=== PATIENT | female | born 1980 | race Two or more races ===

== ENCOUNTER 2021-02-27 09:23 | Emergency (ER) | payer MEDICAID, OTHER ==
[~2021-02-27] VITALS: Ht 154.9 cm; Wt 78.5 kg
[2021-02-27 10:08] LABS: Basophils # (auto) 0.1 10 ^3/uL (0-0.2); Basophils % (auto) 0.8 % (0.0-2.0); Eosinophils # (auto) 0.2 10 ^3/uL (0-0.8); Eosinophils % (auto) 2.8 % (0.0-7.0); Hemoglobin 13.5 g/dL (12.2-16.2); Lymphocytes # (auto) 1.9 10 ^3/uL (0.4-5.4); Lymphocytes % (auto) 29.2 % (10.0-50.0); Mean Corpuscular Hemoglobin 29.1 pg (28.0-32.0); Mean Corpuscular Volume 88.3 fL (80.0-100.0); Monocytes # (auto) 0.3 10 ^3/uL (0-1.3); Monocytes % (auto) 5.4 % (0.0-12.0); Neutrophils # (auto) 3.9 10 ^3/uL (1.6-8.6); Neutrophils % (auto) 61.8 % (37.0-80.0); Red Blood Cells 4.64 10^6/uL (4.0-5.20); Red Cell Distribution Width 13.7 % (11.8-14.3); White Blood Cell 6.4 10^3/uL (4.4-10.8)
[2021-02-27 10:57] VITALS: BP 142/105
[2021-02-27 11:16] LABS: Albumin 3.6 g/dL (3.4-5.0); BUN/Creatinine Ratio 12.3; Bilirubin, Total 0.4 mg/dL (0.2-1.0); Potassium 3.9 mmol/L (3.5-5.1); Total Protein 7.7 g/dL (6.4-8.2)
== END 2021-02-27 11:58 | disposition home or self-care (01) ==
LOC: ER 09:23
DX: O20.8 Other hemorrhage in early pregnancy (principal); Z3A.00 Weeks of gestation of pregnancy not specified
CPT/HCPCS: 36415; 80053; 84702; 85025

== ENCOUNTER 2022-09-15 09:44 | Observation (INO) | payer MEDICAID | END 2022-09-15 16:22 | disposition home or self-care (01) | LOC: LDRP 14:49 → UNDOADMOB 14:49 → LDRP 15:04 | PROVIDERS: ADMIT Obstetrics & Gynecology; ATTEND Obstetrics & Gynecology | DX: O24.419 Gestational diabetes mellitus in pregnancy, unspecified control (principal); Z3A.32 32 weeks gestation of pregnancy | CPT/HCPCS: 59025; 76818; 81002; 82948; 82962; 94760; G0378 ==

== ENCOUNTER 2022-09-22 07:35 | Observation (INO) | payer MEDICAID | END 2022-09-22 12:07 | disposition home or self-care (01) | LOC: LDRP 10:43 → UNDOADMOB 10:43 → LDRP 10:54 → UNDODISOB 12:07 | PROVIDERS: ADMIT Obstetrics & Gynecology; ATTEND Obstetrics & Gynecology | DX: O24.419 Gestational diabetes mellitus in pregnancy, unspecified control (principal); Z3A.33 33 weeks gestation of pregnancy | CPT/HCPCS: 59025; 76818; 81002; 82948; 82962; 94760; G0378 ==

== ENCOUNTER 2022-09-29 11:00 | Observation (INO) | payer MEDICAID | END 2022-09-29 12:40 | disposition home or self-care (01) | LOC: LDRP 11:00 → UNDOADMOB 11:00 → LDRP 11:06 | PROVIDERS: ADMIT Obstetrics & Gynecology; ATTEND Obstetrics & Gynecology | DX: O24.419 Gestational diabetes mellitus in pregnancy, unspecified control (principal); Z3A.34 34 weeks gestation of pregnancy | CPT/HCPCS: 59025; 76818; 81002; 82948; 82962; 94760; G0378 ==

== ENCOUNTER 2022-10-06 10:58 | Observation (INO) | payer MEDICAID | END 2022-10-06 12:38 | disposition home or self-care (01) | LOC: UNDOADMOB 10:58 → LDRP 10:58 → UNDODISOB 12:38 | PROVIDERS: ADMIT Obstetrics & Gynecology; ATTEND Obstetrics & Gynecology | DX: O24.419 Gestational diabetes mellitus in pregnancy, unspecified control (principal); Z3A.35 35 weeks gestation of pregnancy | CPT/HCPCS: 59025; 76818; 81002; 82962; 94760; G0378 ==

== ENCOUNTER 2022-10-12 12:20 | Observation (INO) | payer MEDICAID | END 2022-10-12 14:16 | disposition home or self-care (01) | LOC: LDRP 12:20 → UNDOADMOB 12:20 → LDRP 12:46 | PROVIDERS: ADMIT Obstetrics & Gynecology; ATTEND Obstetrics & Gynecology | DX: O24.419 Gestational diabetes mellitus in pregnancy, unspecified control (principal); Z3A.36 36 weeks gestation of pregnancy | CPT/HCPCS: 59025; 76818; 81002; 82962; 94760; G0378 ==

== ENCOUNTER 2022-10-19 11:35 | Observation (INO) | payer MEDICAID ==
[2022-10-19] MEDS ORDERED: PREN-96 PO (13:34)
== END 2022-10-19 13:46 | disposition home or self-care (01) ==
LOC: LDRP 11:35 → UNDOADMOB 11:35 → LDRP 11:45 → UNDODISOB 13:46
PROVIDERS: ADMIT Obstetrics & Gynecology; ATTEND Obstetrics & Gynecology
DX: O24.419 Gestational diabetes mellitus in pregnancy, unspecified control (principal); Z3A.37 37 weeks gestation of pregnancy
CPT/HCPCS: 59025; 76818; 81002; 82948; 82962; G0378

== ENCOUNTER 2022-10-29 04:00 | Inpatient (IN) | payer MEDICAID ==
[2022-10-27 10:33] LABS: Basophils # (auto) 0 10 ^3/uL (0-0.2); Basophils % (auto) 0.6 % (0.0-2.0); Eosinophils # (auto) 0 10 ^3/uL (0-0.8); Eosinophils % (auto) 0.5 % (0.0-7.0); Hemoglobin 12.1 g/dL (12.2-16.2); Lymphocytes % (auto) 18.7 % (10.0-50.0); Mean Corpuscular Hgb Conc. 33.7 g/dL (32.0-36.0); Mean Corpuscular Volume 89.1 fL (80.0-100.0); Monocytes # (auto) 0.3 10 ^3/uL (0-1.3); Monocytes % (auto) 5.1 % (0.0-12.0); Neutrophils % (auto) 75.1 % (37.0-80.0); Red Blood Cells 4.04 10^6/uL (4.0-5.20); Red Cell Distribution Width 15.5 % (11.8-14.3); White Blood Cell 5.3 10^3/uL (4.4-10.8)
[2022-10-27 10:52] LABS: Urine Bacteria FEW /hpf (None Seen); Urine Blood Negative /uL (Negative); Urine Specific Gravity 1.007 (1.001-1.035); Urine WBC <1 /hpf (0 - 5)
[2022-10-27 11:31] LABS: INR 0.92 (0.9-1.15); Partial Thromboplastin Time 29.1 sec (24.6-33.4)
[2022-10-27 11:45] LABS: Albumin 2.7 g/dL (3.4-5.0); Calcium 8.4 mg/dL (8.5-10.1); Potassium 3.4 mmol/L (3.5-5.1)
[2022-10-27 11:50] LABS: Alcohol, Urine < 3.0 mg/dL (0-10); Barbiturate Scree,Urine NEGATIVE (NEGATIVE)
[2022-10-27 11:54] LABS: BUN/Creatinine Ratio 8.6 (10.0-20.0); Bilirubin, Total 0.3 mg/dL (0.2-1.0); Total Protein 6.1 g/dL (6.4-8.2)
[2022-10-27 12:03] LABS: Amphetamine Screen, Urine NEGATIVE (NEGATIVE); Benzodiazephine Screen, Urine NEGATIVE (NEGATIVE); Cannabinoid Screen, Urine NEGATIVE (NEGATIVE); Cocaine Screen, Urine NEGATIVE (NEGATIVE); Opiate Scree,Urine NEGATIVE (NEGATIVE); Phencyclidine Screen, Urine NEGATIVE (NEGATIVE)
[2022-10-28 06:23] LABS: RPR Non Reactive (Non Reactive)
[~2022-10-29] VITALS: Ht 162.6 cm; Wt 89.4 kg
[2022-10-29] VITALS (15 sets, daily range): BP systolic 106–122; BP diastolic 58–76
[~2022-10-29 04:00] MED LIST: PREN-96 PO
[2022-10-29] MEDS ORDERED: LACTATED RINGER'S 1,000 ML IV ONE (04:30)
[2022-10-29] MEDS ORDERED: SODIUM CITR/CITRIC ACID ORAL SOLN 30 ML PO ONE (04:30)
[2022-10-29] MEDS ORDERED: ceFAZolin 1GM/50ML 50 ML IV ONE (04:30)
[2022-10-29] MEDS: LACTATED RINGER'S 1,000 ML IV SCH ×3 (05:07→20:30)
[2022-10-29] MEDS ORDERED: fentaNYL CITRATE 100 MCG/2 ML VL ONE (07:50)
[2022-10-29] MEDS ORDERED: EPINEPHrine HCL 1 MG/1 ML AMP ONE (07:51)
[2022-10-29] MEDS ORDERED: SODIUM CHLORIDE LOCK 10 ML ONE (07:51)
[2022-10-29] MEDS ORDERED: BUPIVACAINE/DEXTROSE MPF 0.75% 2 ML AMP IT ONE (07:51)
[2022-10-29] MEDS ORDERED: ONDANSETRON HCL 4 MG/2 ML VIAL ONE (07:51)
[2022-10-29] MEDS ORDERED: MIDAZOLAM HCL 2MG/2ML 2ml VIAL (1mg/ml) ONE (07:51)
[2022-10-29] MEDS ORDERED: ePHEDrine SULFATE 50 MG/ML AMP ONE (07:51)
[2022-10-29] MEDS ORDERED: SUGAMMADEX 200mg/2ml Vial (100MG/ML) IV ONE (07:53)
[2022-10-29] MEDS ORDERED: NALOXONE HCL 1MG/ML 2ML SYRINGE ONE (08:02)
[2022-10-29] MEDS ORDERED: TETRACAINE 1% INJ 2 ML VIAL IJ ONE (08:22)
[2022-10-29] MEDS ORDERED: oxyTOCIN 10 UNIT/ML 10ML VIAL ONE (08:28)
[2022-10-29] MEDS ORDERED: MORPHINE SULF PF 5 MG/10 ML VIAL ONE (08:28)
[2022-10-29] MEDS ORDERED: HYDR-4902 PO (08:48)
[2022-10-29] MEDS ORDERED: IBUP-1456 PO (08:48)
[2022-10-29] MEDS ORDERED: DOCU-94 PO (08:48)
[2022-10-29] MEDS ORDERED: MORPHINE SULFATE INJ 2 MG/ml SYRG IV PRN (10:00)
[2022-10-29] MEDS ORDERED: diphenhdrAMINE HCL 50 MG/1 ML VL IV PRN (10:00)
[2022-10-29] MEDS ORDERED: NALOXONE HCL 0.4 MG/ML VIAL IV PRN (10:00)
[2022-10-29] MEDS ORDERED: METOCLOPRAMIDE HCL 5MG/ml INJ 2ml VIAL IV PRN (10:00)
[2022-10-29] MEDS ORDERED: HYDROmorphone HCL 2 MG/ML VL/or syr IV PRN ×2 (10:00)
[2022-10-29] MEDS ORDERED: LACT. RINGERS/OXYTOCIN 20UNITS 1,000 ML IV ONE (10:15)
[2022-10-29] MEDS ORDERED: ONDANSETRON HCL 4 MG/2 ML VIAL IV PRN (10:15)
[2022-10-29] MEDS ORDERED: ceFAZolin 1GM/50ML 50 ML IV SCH (10:15)
[2022-10-29] MEDS ORDERED: GUM (CHEWING) 1 GUM CHEW CHEW ONE (10:15)
[2022-10-29] MEDS: TERBUTALINE SULFATE 1 MG/ML 1ML VIAL SC SCH ×2 (12:22→12:28)
[2022-10-29] MEDS: ACETAMINOPHEN IV 1000 MG/100ML (10MG/ML) IV PRN ×2 (14:27→22:30)
[2022-10-29] MEDS: ceFAZolin 1GM/50ML 50 ML IV SCH ×2 (15:30→23:35)
[2022-10-29 22:20] LABS: Basophils # (auto) 0 10 ^3/uL (0-0.2); Basophils % (auto) 0.4 % (0.0-2.0); Eosinophils # (auto) 0 10 ^3/uL (0-0.8); Eosinophils % (auto) 0.1 % (0.0-7.0); Hematocrit 38.3 % (36.0-46.0); Hemoglobin 12.8 g/dL (12.2-16.2); Lymphocytes % (auto) 8.7 % (10.0-50.0); Mean Corpuscular Hemoglobin 30.1 pg (28.0-32.0); Mean Corpuscular Hgb Conc. 33.4 g/dL (32.0-36.0); Mean Corpuscular Volume 90.1 fL (80.0-100.0); Monocytes # (auto) 0.8 10 ^3/uL (0-1.3); Monocytes % (auto) 6.5 % (0.0-12.0); Neutrophils # (auto) 9.7 10 ^3/uL (1.6-8.6); Neutrophils % (auto) 84.3 % (37.0-80.0); Nucleated Red Blood Cells % 0.1 %; Red Blood Cells 4.25 10^6/uL (4.0-5.20); Red Cell Distribution Width 14.9 % (11.8-14.3); White Blood Cell 11.5 10^3/uL (4.4-10.8)
[2022-10-30] VITALS (10 sets, daily range): BP systolic 99–127; BP diastolic 50–73
[2022-10-30] MEDS: LACTATED RINGER'S 1,000 ML IV SCH ×3 (04:30→20:30)
[2022-10-30] MEDS ORDERED: BISACODYL 10 MG RECT SUPP PR PRN (06:30)
[2022-10-30] MEDS ORDERED: HYDROcodone-ACET 5/325MG TAB PO PRN (06:30)
[2022-10-30 07:11] LABS: Basophils # (auto) 0 10 ^3/uL (0-0.2); Basophils % (auto) 0.5 % (0.0-2.0); Eosinophils # (auto) 0 10 ^3/uL (0-0.8); Eosinophils % (auto) 0.5 % (0.0-7.0); Hematocrit 32.4 % (36.0-46.0); Hemoglobin 11.3 g/dL (12.2-16.2); Lymphocytes # (auto) 1.5 10 ^3/uL (0.4-5.4); Lymphocytes % (auto) 17.6 % (10.0-50.0); Mean Corpuscular Hemoglobin 31.2 pg (28.0-32.0); Mean Corpuscular Hgb Conc. 34.7 g/dL (32.0-36.0); Monocytes # (auto) 0.7 10 ^3/uL (0-1.3); Monocytes % (auto) 7.8 % (0.0-12.0); Neutrophils # (auto) 6.2 10 ^3/uL (1.6-8.6); Neutrophils % (auto) 73.6 % (37.0-80.0); White Blood Cell 8.4 10^3/uL (4.4-10.8)
[2022-10-30] MEDS: ACETAMINOPHEN IV 1000 MG/100ML (10MG/ML) IV PRN (07:17)
[2022-10-30] MEDS: ceFAZolin 1GM/50ML 50 ML IV SCH (08:17)
[2022-10-30] MEDS: DOCUSATE CALCIUM 240 MG CAP PO SCH (10:07)
[2022-10-30] MEDS: DOCUSATE SOD 100 MG CAP PO SCH ×2 (10:07→21:20)
[2022-10-30] MEDS: SIMETHICONE 80 MG CHEWABLE TABLET PO SCH ×3 (11:46→21:20)
[2022-10-30] MEDS: IBUPROFEN 800 MG TAB PO PRN (11:46)
[2022-10-30] MEDS: HYDROcodone-ACET 5/325MG TAB PO PRN (21:21)
[2022-10-31] VITALS (7 sets, daily range): BP systolic 115–132; BP diastolic 68–78
[2022-10-31] MEDS: HYDROcodone-ACET 5/325MG TAB PO PRN ×3 (04:09→22:36)
[2022-10-31] MEDS: IBUPROFEN 800 MG TAB PO PRN ×2 (06:30→17:43)
[2022-10-31] MEDS: SIMETHICONE 80 MG CHEWABLE TABLET PO SCH ×4 (06:30→22:36)
[2022-10-31] MEDS: DOCUSATE SOD 100 MG CAP PO SCH ×2 (10:27→22:36)
[2022-10-31] MEDS: DOCUSATE CALCIUM 240 MG CAP PO SCH (10:27)
[2022-11-01 03:03] VITALS: BP 111/75
[2022-11-01] MEDS: SIMETHICONE 80 MG CHEWABLE TABLET PO SCH (06:21)
[2022-11-01] MEDS: IBUPROFEN 800 MG TAB PO PRN (06:22)
[2022-11-01 07:24] VITALS: BP 128/70
[2022-11-01 10:55] VITALS: BP 115/75
== END 2022-11-01 11:04 | disposition home or self-care (01) | DRG 539 ==
LOC: LDRP 04:00
PROVIDERS: ADMIT Obstetrics & Gynecology; ATTEND Obstetrics & Gynecology
PROC: 10D00Z1 Extraction of Products of Conception, Low, Open Approach (ICD-10-PCS; 2022-10-29)
PROC: 0UL70CZ Occlusion of Bilateral Fallopian Tubes with Extraluminal Device, Open Approach (ICD-10-PCS; principal; 2022-10-29 08:40)
DX: O24.429 Gestational diabetes mellitus in childbirth, unspecified control (principal); R71.0 Precipitous drop in hematocrit; O34.211 Maternal care for low transverse scar from previous cesarean delivery; Z30.2 Encounter for sterilization; Z37.0 Single live birth; Z3A.38 38 weeks gestation of pregnancy
CPT/HCPCS: 36415; 59025; 80053; 80307; 81001; 82948; 82962; 85025; 85610; 85730; 86592; 86850; 86900; 86901; 94760; 94762; 96360; 96361; 96365; 96366; 96374; G0378; J0131; J0171; J0690; J2250; J2405; J2590